=== PATIENT | female | born 1980 | race Two or more races ===

== ENCOUNTER 2020-08-30 18:12 | Emergency (ER) | payer SELFPAY ==
[~2020-08-30] VITALS: Ht 160 cm; Wt 79.5 kg
[2020-08-30 19:23] LABS: BILIRUBIN,URINE NEGATIVE (NEG); CLARITY,URINE CLEAR; COLOR,URINE YELLOW; NITRITE,URINE NEGATIVE (NEG); PROTEIN,URINE NEGATIVE (NEG-TRACE)
[2020-08-30 19:32] LABS: AMPHETAMINE/METHAMPHETAMINE NEG (NEG); BARBITURATES NEG (NEG); BENZODIAZEPINES NEG (NEG); CANNABINOIDS NEG (NEG); COCAINE NEG (NEG); METHADONE NEG (NEG); OPIATES NEG (NEG); PHENCYCLIDINE NEG (NEG)
[2020-08-30 19:35] LABS: BACTERIA,URINE MODERATE /HPF (0-FEW)
[2020-08-30 19:41] LABS: BASO % 1 % (0-3); EOS # 0.2 x10^3/uL (0.0-0.7); EOS % 2 % (0-3); HEMOGLOBIN 12.5 g/dL (12.0-15.5); LYMPH # 2.3 x10^3/uL (1.0-4.8); LYMPH % 28 % (24-48); MEAN CORPUSCULAR HEMOGLOBIN 30 pg (25-35); MEAN CORPUSCULAR HGB CONC 34 g/dL (31-37); MEAN CORPUSCULAR VOLUME 88 fL (79-100); MONO # 0.8 x10^3/uL (0.0-1.1); MONO % 10 % (0-9); NEUT # 4.9 x10^3/uL (1.8-7.7); NEUT % 60 % (31-73); PLATELET COUNT 232 x10^3/uL (140-400); RED BLOOD COUNT 4.21 x10^6/uL (3.50-5.40); RED CELL DISTRIBUTION WIDTH 14.2 % (11.5-14.5); WHITE BLOOD COUNT 8.2 x10^3/uL (4.0-11.0)
[2020-08-30 19:49] LABS: CALCIUM 8.3 mg/dL (8.5-10.1); CREATININE 0.6 mg/dL (0.6-1.0); GFR 110.7; POTASSIUM 3.8 mmol/L (3.5-5.1)
[2020-08-30 19:55] LABS: ALBUMIN 3.1 g/dL (3.4-5.0); ALBUMIN/GLOBULIN RATIO 0.9 (1.0-1.7); TOTAL BILIRUBIN 0.2 mg/dL (0.2-1.0); TOTAL PROTEIN 6.5 g/dL (6.4-8.2)
[2020-08-30 21:36] VITALS: BP 116/59
--- NOTE | 2020-08-30 21:36 | RAD ---
Study: US PRE HYSTEROSALPINGOGRAM DATE: 08/30/2020 8:28 PM INDICATION: Vaginal bleeding. Known . COMPARISON: None recently. TECHNIQUE: Transabdominal and transvaginal ultrasonography of the pelvis was performed. Color Doppler and duplex were utilized as appropriate. FINDINGS: The uterus is measured at 12 x 6.7 x 5.5 cm. Unremarkable uterine parenchyma. Elongated intrauterine gestational sac with a mean sac diameter of 1.46 cm. Yolk sac measures 0.4 cm. A small pole riley sures 0.36 cm. No subchorionic hemorrhage is identified. No heart tones are detected. The left ovary measures 2.5 x 2.0 x 2.0 cm with normal Doppler flow. The right ovary was not able to be visualized. No free pelvic fluid. IMPRESSION: 1. Somewhat irregularly marginated intrauterine gestational sac containing a pole and yolk sac but no heart tones are detected. Estimated gestational age of 6 weeks 1 day compared to that estimat ed by last menstrual period of 9 weeks 3 days. The findings are concerning for a failed first trimest er but not diagnostic at this time given the measured crown-rump length and sac diameter. F ollow-up in 10 to 14 days would allow for confirmation as a heartbeat should be present at that time. 2. Unremarkable left ovary. The right ovary was not able to be visualized. Electronically signed by: FELI MANRIQUEZ MD (08/30/2020 9:34 PM) [facility]
--- NOTE | 2020-08-30 22:01 | PHYS DOC ---
Past Medical History Past Medical History: No Pertinent History Past Surgical History: No Surgical History Smoking Status: Never Smoker Alcohol Use: None General Adult EDM: Chief Complaint: VAGINAL BLEEDING HPI: HPI: Patient is a 40 year old female 5 para 4 currently 2 months 10 days per her own statement who presents to the ED today with vaginal bleeding that began yesterday. Patient is also complaining of slight lower abdominal cramping. Denies any fever. Denies any nausea vomiting. Denies anything specifically exacerbating her abdominal cramping. She states she follows up with one of the local clinics for her OB care. Patient reports her last menstrual cycle is July 05, 2020. Review of Systems: Review of Systems: Constitutional: Denies fever or chills. [] Eyes: Denies change in visual acuity. [] HENT: Denies nasal congestion or sore throat. [] Respiratory: Denies cough or shortness of breath. [] Cardiovascular: Denies chest pain or edema. [] GI: Reports vaginal bleeding and abdominal cramping in , denies nausea, vomiting, bloody stools or diarrhea. [] : Denies dysuria. [] Musculoskeletal: Denies back pain or joint pain. [] Integument: Denies rash. [] Neurologic: Denies headache, focal weakness or sensory changes. [] Psychiatric: Denies depression or anxiety. [] Heart Score: Risk Factors: Risk Factors: DM, Current or recent (<one month) smoker, HTN, HLP, family history of CAD, obesity. Risk Scores: Score 0 - 3: 2.5% MACE over next 6 weeks - Discharge Home Score 4 - 6: 20.3% MACE over next 6 weeks - Admit for Clinical Observation Score 7 - 10: 72.7% MACE over next 6 weeks - Early Invasive Strategies Allergies: Allergies: Allergies Coded Allergies Type Severity Reaction Last Updated Verified No Known Drug Allergies 08/30/20 No Physical Exam: PE: Constitutional: Well developed, well nourished, no acute distress, non-toxic appearance. [] HENT: Normocephalic, atraumatic, bilateral external ears normal, oropharynx moist, no oral exudates, nose normal. [] Eyes: PERRLA, EOMI, conjunctiva normal, no discharge. [] Neck: Normal range of motion, no tenderness, supple, no stridor. [] Cardiovascular:Heart rate regular rhythm, no murmur [] Lungs & Thorax: Bilateral breath sounds clear to auscultation [] Abdomen: Bowel sounds normal, soft, no tenderness, no masses, no pulsatile masses. [] Pelvic exam External pelvic appears normal, cervix is visualized, closed, no CMT, no adnexal tenderness, trace amount of brownish discharge in the vaginal vault. Skin: Warm, dry, no erythema, no rash. [] Back: No tenderness, no CVA tenderness. [] Extremities: No tenderness, no cyanosis, no clubbing, ROM intact, no edema. [] Neurologic: Alert and oriented X 3, normal motor function, normal sensory function, no focal deficits noted. [] Psychologic: Affect normal, judgement normal, mood normal. [] Current Patient Data: Labs: Laboratory Tests Test 08/30/20 18:20 08/30/20 18:37 08/30/20 19:30 Urine Collection Type Unknown Urine Color Yellow Urine Clarity Clear Urine pH 6.0 (<5.0-8.0) Urine Specific [place] 1.020 (1.000-1.030) Urine Protein Negative mg/dL (NEG-TRACE) Urine Glucose (UA) Negative mg/dL (NEG) Urine Ketones (Stick) Negative mg/dL (NEG) Urine Blood Large (NEG) Urine Nitrite Negative (NEG) Urine Bilirubin Negative (NEG) Urine Urobilinogen Dipstick 1.0 mg/dL (0.2 mg/dL) Urine Leukocyte Esterase Trace (NEG) Urine RBC 11-20 /HPF (0-2) Urine WBC 5-10 /HPF (0-4) Urine Squamous Epithelial Cells Many /LPF Urine Bacteria Moderate /HPF (0-FEW) Urine Mucus Mod /LPF Urine Opiates Screen Neg (NEG) Urine Methadone Screen Neg (NEG) Urine Barbiturates Neg (NEG) Urine Phencyclidine Screen Neg (NEG) Urine Amphetamine/Methamphetamine Neg (NEG) Urine Benzodiazepines Screen Neg (NEG) Urine Cocaine Screen Neg (NEG) Urine Cannabinoids Screen Neg (NEG) Urine Ethyl Alcohol Neg (NEG) POC Urine HCG, Qualitative Hcg positive (Negative) White Blood Count 8.2 x10^3/uL (4.0-11.0) Red Blood Count 4.21 x10^6/uL (3.50-5.40) Hemoglobin 12.5 g/dL (12.0-15.5) Hematocrit 37.0 % (36.0-47.0) Mean Corpuscular Volume 88 fL (79-100) Mean Corpuscular Hemoglobin 30 pg (25-35) Mean Corpuscular Hemoglobin Concent 34 g/dL (31-37) Red Cell Distribution Width 14.2 % (11.5-14.5) Platelet Count 232 x10^3/uL (140-400) Neutrophils (%) (Auto) 60 % (31-73) Lymphocytes (%) (Auto) 28 % (24-48) Monocytes (%) (Auto) 10 % (0-9) H Eosinophils (%) (Auto) 2 % (0-3) Basophils (%) (Auto) 1 % (0-3) Neutrophils # (Auto) 4.9 x10^3/uL (1.8-7.7) Lymphocytes # (Auto) 2.3 x10^3/uL (1.0-4.8) Monocytes # (Auto) 0.8 x10^3/uL (0.0-1.1) Eosinophils # (Auto) 0.2 x10^3/uL (0.0-0.7) Basophils # (Auto) 0.0 x10^3/uL (0.0-0.2) Maternal Serum HCG Beta Subunit 18566 mIU/mL (0-5) H Sodium Level 138 mmol/L (136-145) Potassium Level 3.8 mmol/L (3.5-5.1) Chloride Level 104 mmol/L (98-107) Carbon Dioxide Level 25 mmol/L (21-32) Anion Gap 9 (6-14) Blood Urea Nitrogen 7 mg/dL (7-20) Creatinine 0.6 mg/dL (0.6-1.0) Estimated GFR (Cockcroft-Gault) 110.7 BUN/Creatinine Ratio 12 (6-20) Glucose Level 74 mg/dL (70-99) Calcium Level 8.3 mg/dL (8.5-10.1) L Total Bilirubin 0.2 mg/dL (0.2-1.0) Aspartate Amino Transferase (AST) 13 U/L (15-37) L Alanine Aminotransferase (ALT) 23 U/L (14-59) Alkaline Phosphatase 65 U/L (46-116) Total Protein 6.5 g/dL (6.4-8.2) Albumin 3.1 g/dL (3.4-5.0) L Albumin/Globulin Ratio 0.9 (1.0-1.7) L Ethyl Alcohol Level < 10 mg/dL (0-10) Laboratory Tests 08/30/20 19:30 Laboratory Tests 08/30/20 19:30 Microbiology 08/30/20 Wet Prep - Final, Complete Vital Signs: Vital Signs Date Time Temp Pulse Resp B/P (MAP) Pulse Ox O2 Delivery O2 Flow Rate FiO2 08/30/20 19:15 98.4 68 18 110/58 (75) 98 Room Air 98.4 EKG: EKG: [] Radiology/Procedures: Radiology/Procedures: []PROCEDURE: OB < 14 WKS Study: US PRE HYSTEROSALPINGOGRAM DATE: 08/30/2020 8:28 PM INDICATION: Vaginal bleeding. Known . COMPARISON: None recently. TECHNIQUE: Transabdominal and transvaginal ultrasonography of the pelvis was performed. Color Doppler and duplex were utilized as appropriate. FINDINGS: The uterus is measured at 12 x 6.7 x 5.5 cm. Unremarkable uterine parenchyma. Elongated intrauterine gestational sac with a mean sac diameter of 1.46 cm. Yolk sac measures 0.4 cm. A small pole measures 0.36 cm. No subchorionic hemorrhage is identified. No heart tones are detected. The left ovary measures 2.5 x 2.0 x 2.0 cm with normal Doppler flow. The right ovary was not able to be visualized. No free pelvic fluid. IMPRESSION: 1. Somewhat irregularly marginated intrauterine gestational sac containing a pole and yolk sac but no heart tones are detected. Estimated gestational age of 6 weeks 1 day compared to that estimated by last menstrual period of 9 weeks 3 days. The findings are concerning for a failed first trimester but not diagnostic at this time given the measured crown-rump length and sac diameter. Follow-up in 10 to 14 days would allow for confirmation as a heartbeat should be present at that time. 2. Unremarkable left ovary. The right ovary was not able to be visualized. Electronically signed by: FELI MANRIQUEZ MD (08/30/2020 9:34 PM) [facility] DICTATED and SIGNED BY: FELI MANRIQUEZ MD DATE: 08/30/20 [id number] 0 Course & Med Decision Making: Course & Med Decision Making Pertinent Labs and Imaging studies reviewed. (See chart for details) This is a 40-year-old female patient 5 para 4 presenting to the ED with abdominal pain and vaginal bleeding in that began 1 day ago. [facility] 07/05/2020. Trace bleeding noted during pelvic exam. CBC with no acute findings, normal hemoglobin and hematocrit. CMP with no acute findings. Positive test. Beta hCG 17,901. Wet prep is negative for any acute findings. OB ultrasound noted for somewhat irregularly marginated intrauterine gestational sac containing a pole and yolk sac but no heart tones are detected. Estimated gestational age of 6 weeks 1 day compared to that estimated by last menstrual period of 9 weeks 3 days. The findings are concerning for a failed first trimester but not diagnostic at this time given the measured crown-rump length and sac diameter. Follow-up in 10 to 14 days would allow for confirmation as a heartbeat should be present at that time. Unremarkable left ovary. The right ovary was not able to be visualized. Spoke to patient using her own family member as dog beautician for [place] regarding her labs and ultrasound. Recommended follow-up as cardiology stated. Recommended beta-hCG in 2 days. Provided return precautions. Provided instru ctions to rest the pelvis. Nicki Disclaimer: Nicki Disclaimer: This electronic medical record was generated, in whole or in part, using a voice recognition dictation system. Departure Departure Impression: Primary Impression: Threatened miscarriage Disposition: 01 DC HOME SELF CARE/HOMELESS Condition: STABLE Referrals: NO PCP (PCP) Follow-up with your LEARNING DISABILITIES SPECIALIST as soon as possible. Patient Instructions: Threatened Miscarriage, [id number] Additional Instructions: You were evaluated in the emergency room, you were noted to be 6 weeks 1 day but there was not heart tones with your last menstrual cycle being July 05, 2020 this is concerning for a failed though this is not conclusive. We would like you to follow-up with your LEARNING DISABILITIES SPECIALIST or doctor in 1-2 days and get repeat labs and ultrasound. Today's beta-hCG was 17,901. In the meantime maintain bedrest, no sex, no strenuous activities. Come back to the ED at any point symptoms worsen. DYLAN ADAMES APRN Aug 30, 2020 22:01
[2020-09-02 07:15] LABS: GC PROBE Negative (Negative)
== END 2020-08-30 22:20 | disposition home or self-care (01) ==
LOC: ER 18:12
DX: O20.0 Threatened abortion (principal); Z3A.08 8 weeks gestation of pregnancy
CPT/HCPCS: 76801; 80053; 80307; 81001; 81025; 84702; 85025; 87086; 87491; 87591; 99284; G0480; Q0111